=== PATIENT | male | born 1965 | race Caucasian/White ===

== ENCOUNTER 2022-01-22 10:23 | Emergency (ER) | payer OTHER ==
[2022-01-22 10:34] VITALS: BP 145/92; PULSE 68; RESP 20; TEMP 98.2
[2022-01-22] MEDS ORDERED: TETANUS-DIPHTHERIA TOX (PF) 0.5 ML VIAL IM ONE (10:41)
[2022-01-22] MEDS ORDERED: LIDOCAINE 1% INJ 10MG/ML (20 ML MDV) SQ STA (10:41)
--- NOTE | 2022-01-22 10:41 | ED ---
Wound/Laceration HPI - General Chief Complaint: Wound/Laceration Stated Complaint: finger wound - rt hand Time Seen by Provider: 01/22/22 10:34 Source: patient, RN notes reviewed Mode of arrival: ambulatory Limitations: no limitations - History of Present Illness Initial Comments: Patient is a 56-year-old male presents to the emergency room after cutting his thumb on a fan at work. He reports that his thumb was caught in the back port of the fan pulling his thumb tissue open. He denies any concern for foreign object or blunt force trauma to the thumb. His tetanus shot is not up-to-date. He denies any range of motion impairment. He has no significant past medical history not does not take any medications on a regular basis. - Related Data Previous Rx's Medication Instructions Recorded Cephalexin [Keflex] 500 mg PO Q8HR 7 Days #21 cap 01/22/22 Allergies Allergy/AdvReac Type Severity Reaction Status Date / Time No Known Allergies Allergy Verified 01/22/22 10:34 Review of Systems ROS Statement: Those systems with pertinent positive or pertinent negative responses have been documented in the HPI. ROS Other: All systems not noted in ROS Statement are negative. Past Medical History Past Medical History: No Reported History History of Any Multi-Drug Resistant Organisms: None Reported Past Surgical History: No Surgical Hx Reported Past Psychological History: No Psychological Hx Reported Smoking Status: Never smoker Past Alcohol Use History: Occasional Past Drug Use History: None Reported General Exam Limitations: no limitations General appearance: alert, in no apparent distress Head exam: Present: atraumatic, normocephalic, normal inspection Eye exam: Present: normal appearance, PERRL, EOMI. Absent: scleral icterus, conjunctival injection, periorbital swelling ENT exam: Present: normal exam Neck exam: Present: normal inspection Respiratory exam: Absent: respiratory distress, accessory muscle use Right Hand Wrist exam: Present: full ROM, tenderness, laceration (Flap laceration curved approximately 3 cm in diameter. Well approximated after suture repair.). Absent: amputation, nail avulsion Vascular: Absent: vascular compromise Back exam: Present: normal inspection Neurological exam: Present: alert, oriented X3, CN II-XII intact Psychiatric exam: Present: normal affect, normal mood Skin exam: Present: other (as above) Course Vital Signs 01/22/22 10:32 Temperature 98.2 F Pulse Rate 68 Respiratory 20 Rate Blood Pressure 145/92 O2 Sat by Pulse 97 Oximetry Procedures - Laceration Laceration #1 Consent Obtained: verbal consent Indication: laceration Site: other (right thumb) Size (cm): 3 (curved ) Description: flap Depth: simple, single layer Anesthetic Used: lidocaine 1% Anesthesia Technique: local infiltration Pre-repair: wound explored, irrigated extensively Type of Sutures: nylon Size of Sutures: 4-0 Number of Sutures: 9 Technique: simple, interrupted Patient Tolerated Procedure: well, no complications Medical Decision Making - Medical Decision Making Superficial tissue injury with blunt force trauma. No need for diagnostic imaging or laboratory studies. Pain medication offered and declined. Vaccinations not currently up-to-date. Will give tetanus vaccine. Laceration flap closure with sutures. Tolerated well. Due significant dirt on hand at time of laceration will treat empirically with antibiotics. Discussed localized wound care. Advise follow-up with your primary care provider in 7-10 days for suture removal or sooner if any signs or symptoms of infection. Advised if any numbness or tingling or joint range of motion impairment to return to the emergency room and/or follow-up with a hand specialist. Case discussed with Dr. Hutchins. Disposition Clinical Impression: Laceration Disposition: HOME SELF-CARE Condition: Stable Instructions (If sedation given, give patient instructions): Care For Your Stitches (DC), Laceration (ED) Additional Instructions: Please complete antibiotic course as prescribed. You received tetanus shot today and tetanus vaccine is up-to-date for the next 10 years. Please follow-up with your primary care provider within 7-10 days for further evaluation of a laceration and suture removal. May utilize Tylenol or ibuprofen as needed [id number] for pain. Please return to the Emergency Department if symptoms worsen or any other concerns. Prescriptions: Cephalexin [Keflex] 500 mg PO Q8HR 7 Days #21 cap Is patient prescribed a controlled substance at d/c from ED?: No Referrals: Tramaine Gonzalez MD [Primary Care Provider] - 1-2 days Time of Disposition: 11:43
== END 2022-01-22 12:02 | disposition home or self-care (01) ==
LOC: EC 10:23
DX: S61.011A Laceration without foreign body of right thumb without damage to nail, initial encounter (principal); Z23 Encounter for immunization; W26.8XXA Contact with other sharp object(s), not elsewhere classified, initial encounter
CPT/HCPCS: 90714; 12002; 99282; 90471; J2001